=== PATIENT | female | born 1960 | race Caucasian/White ===

== ENCOUNTER 2018-05-27 10:55 | Outpatient (CLI) | payer OTHER ==
[~2018-05-27 10:55] MED LIST: SEPTRA DS TABLE1 TAB PO
== END 2018-05-27 11:08 | disposition home or self-care (01) ==
LOC: MAMO-SONO 10:55
DX: N60.11 Diffuse cystic mastopathy of right breast (principal); N60.12 Diffuse cystic mastopathy of left breast; Z12.31 Encounter for screening mammogram for malignant neoplasm of breast

== ENCOUNTER 2020-05-02 09:08 | Outpatient (CLI) | payer OTHER | END 2020-05-02 09:10 | disposition home or self-care (01) | LOC: MAMO-SONO 09:08 | PROVIDERS: ATTEND General Practice | DX: Z12.31 Encounter for screening mammogram for malignant neoplasm of breast (principal) ==

== ENCOUNTER 2020-05-16 08:30 | Outpatient (CLI) | payer OTHER | END 2020-05-16 09:06 | disposition home or self-care (01) | LOC: MAMO-SONO 08:30 | PROVIDERS: ATTEND General Practice | DX: N64.59 Other signs and symptoms in breast (principal) ==

== ENCOUNTER 2020-11-18 07:33 | Outpatient (CLI) | payer OTHER | END 2020-11-18 07:45 | disposition home or self-care (01) | LOC: MRI 07:33 | PROVIDERS: ATTEND General Practice | DX: M17.12 Unilateral primary osteoarthritis, left knee (principal); M25.561 Pain in right knee; S83.242A Other tear of medial meniscus, current injury, left knee, initial encounter | CPT/HCPCS: 73721 ==

== ENCOUNTER 2022-04-16 07:32 | Outpatient (CLI) | payer OTHER | END 2022-04-16 07:34 | disposition home or self-care (01) | LOC: SONOGRAMA 07:32 | DX: I11.9 Hypertensive heart disease without heart failure (principal); Q44.6 Cystic disease of liver ==

== ENCOUNTER 2023-03-31 08:20 | Outpatient (CLI) | payer OTHER | END 2023-03-31 08:38 | disposition home or self-care (01) | LOC: MAMO-SONO 08:20 | DX: N60.29 Fibroadenosis of unspecified breast (principal); Z12.31 Encounter for screening mammogram for malignant neoplasm of breast ==

== ENCOUNTER 2025-08-13 08:09 | Outpatient (CLI) | payer OTHER | END 2025-08-13 08:12 | disposition home or self-care (01) | LOC: MAMO-SONO 08:09 | PROVIDERS: ATTEND General Practice | DX: Z12.31 Encounter for screening mammogram for malignant neoplasm of breast (principal) ==